=== PATIENT | male | born 1955 | race Caucasian/White ===

== ENCOUNTER → 2017-01-29 | Day surgery (SDC) | payer BC ==
[~2017-01-29] MED LIST: Propofol 200 MG/20 ML SDV IV ONE; Sodium Chloride 0.9% 500 ML IV SCH
[2017-01-29 14:41] VITALS: BP 133/55
--- NOTE | 2017-01-29 15:13 | OR ---
DATE OF OPERATION: 01/29/2017 PREOPERATIVE DIAGNOSIS: PERSISTENT VOMITING. POSTOPERATIVE DIAGNOSIS: PERSISTENT VOMITING. SURGEON: Christiano Donato MD PROCEDURE: EGD. ANESTHESIA: DENTAL LABORATORY ASSISTANT due to chronic alcohol abuse and marked anxiety. COMPLICATIONS: None. SPECIMEN: None. FINDINGS: 1. Full-length EGD. 2. Diffuse gastritis and duodenitis. RECOMMENDATIONS: Appropriate medical care and counseling for alcohol cessation course. The patient did not have biopsies done that day, he did not stop or hold his aspirin and Plavix. INDICATIONS: The patient has been having persistent issues with vomiting and poor appetite. He does have evidence of marked steatosis on CT scan, and is a long-time chronic alcoholic. We elected to rule out any other pathology in the stomach. DESCRIPTION OF PROCEDURE: The patient was prepped and draped, placed in left lateral decubitus position. A lubricated Olympus gastroscope was inserted and intubated in the esophagus. Esophageal lining for the most part benign. There was a small hiatal hernia present without any stricturing, ulceration, or Palacio's changes. The Z-line was crisp around 37.5 cm. The scope advanced into the stomach through the pylorus into the second portion of the duodenum. The 2nd portion of the duodenum and the bulb each had some mild inflammation, no ulcerations or mass. Scope was brought back into the stomach with and without retroflexion to have a good look at the entire stomach lining. No masses or polyps could be seen and there is diffuse and chronic appearing gastritis throughout but no kaleb ulcerations, masses or otherwise. Air was then suctioned, scope removed without complication. LOIS/DEMARCO /[id number]
== END ==
LOC: CC.SDS 13:23
PROVIDERS: ATTEND Family Medicine
DX: K29.50 Unspecified chronic gastritis without bleeding (principal); K29.80 Duodenitis without bleeding; J44.9 Chronic obstructive pulmonary disease, unspecified; F41.9 Anxiety disorder, unspecified; F10.20 Alcohol dependence, uncomplicated; Z79.82 Long term (current) use of aspirin; Z79.899 Other long term (current) drug therapy; F17.210 Nicotine dependence, cigarettes, uncomplicated
CPT/HCPCS: 43235; J2704; J7040

== ENCOUNTER 2017-04-14 13:00 | Emergency (ER) | payer BC ==
[~2017-04-14 13:00] MED LIST changes: +Albuterol/Ipratropium 3.0-0.5 MG/3 ML Neb Soln ONE; -Propofol 200 MG/20 ML SDV IV ONE; -Sodium Chloride 0.9% 500 ML IV SCH
[2017-04-14] MEDS ORDERED: Furosemide 40 MG/4 ML VIAL ONE (13:08)
[2017-04-14] MEDS ORDERED: Albuterol 0.083% 2.5 MG/3 ML Neb Soln ONE (13:11)
[2017-04-14] MEDS ORDERED: Albuterol/Ipratropium 3.0-0.5 MG/3 ML Neb Soln NEB ONE (13:12)
[2017-04-14] MEDS ORDERED: Albuterol 0.083% 2.5 MG/3 ML Neb Soln NEB ONE (13:20)
[2017-04-14] MEDS ORDERED: Nitroglycerin/D5W 25 MG/250 ML BOTTLE ONE (13:23)
[2017-04-14 13:26] LABS: O2 DELIVERY DEVICE NON REBR MASK
[2017-04-14] MEDS ORDERED: Furosemide 40 MG/4 ML VIAL IVPUSH ONE (13:27)
[2017-04-14 13:32] LABS: BICARBONATE,ARTERIAL 20.3 mm/L (22.0-26.0); O2 SATURATION ARTERIAL 65 % (95-98); PCO2 ARTERIAL 59 mm/Hg0 (35-45); PO2 ARTERIAL 44 mm/Hg (80-100)
[2017-04-14] MEDS ORDERED: Sodium Chloride 0.9% 250 ML ONE (13:34)
[2017-04-14] MEDS: Nitroglycerin 0.4 MG Tab.SL SL PRN ×2 (13:35→13:42)
[2017-04-14 13:48] LABS: CHLORIDE,CL 97 mEq/L (98-106); SODIUM,NA 134 mEq/L (136-145)
[2017-04-14] MEDS ORDERED: Etomidate 2 MG/ML 10 ML SDV IVPUSH ONE (13:57)
[2017-04-14] MEDS ORDERED: Succinylcholine/Normal Saline 200 MG/10 ML Syringe IVPUSH ONE (13:58)
[2017-04-14] MEDS ORDERED: Sodium Chloride 0.9% 1,000 ML ONE ×2 (13:59→14:13)
[2017-04-14] MEDS ORDERED: Sodium Chloride 0.9% 1,000 ML IV SCH (14:00)
[2017-04-14] MEDS ORDERED: Rocuronium 10 MG/ML 10 ML Syringe IVPUSH ONE (14:03)
[2017-04-14] MEDS ORDERED: fentaNYL 100 MCG/2 ML SDV ONE (14:10)
[2017-04-14] MEDS ORDERED: Midazolam 1 MG/ML 2 ML SDV IVPUSH ONE (14:17)
[2017-04-14] MEDS ORDERED: fentaNYL 100 MCG/2 ML SDV IVPUSH ONE (14:20)
[2017-04-14 15:35] VITALS: BP 125/68
--- NOTE | 2017-04-14 17:20 | EDM.PDOC ---
ED HPI GENERAL MEDICAL PROBLEM - General Chief Complaint: Respiratory Problem Stated Complaint: Respiratory Distress Time Seen by Provider: 04/14/17 13:07 Source of Information: Reports: Patient, EMS History Limitations: Reports: Respiratory Distress - History of Present Illness INITIAL COMMENTS - FREE TEXT/NARRATIVE: see Dictated notes Onset: Sudden - Related Data Allergies Allergy/AdvReac Type Severity Reaction Status Date / Time No Known Allergies Allergy Verified 04/14/17 15:06 Home Meds: Home Meds Acetaminophen [Tylenol Extra Strength] 1,000 mg PO BID 04/11/15 [History] Aspirin [Low Dose Aspirin EC] 81 mg PO DAILY 04/11/15 [History] Cholecalciferol (Vitamin D3) [Vitamin D3] 2,000 unit PO DAILY 04/11/15 [History] Lisinopril 40 mg PO DAILY 04/11/15 [History] Metoprolol Tartrate 12.5 mg PO BID 04/11/15 [History] Pravastatin Sodium 20 mg PO DAILY 04/11/15 [History] Albuterol/Ipratropium [Combivent Respimat] 2 puff INH Q4H PRN 04/14/17 [History] Clopidogrel [Plavix] 75 mg PO DAILY 04/14/17 [History] Ferrous Sulfate [Slow Release Iron] 365 mg PO DAILY 04/14/17 [History] Furosemide [Furosemide] 20 mg PO DAILY 04/14/17 [History] Hydrocodone/Acetaminophen [Hydrocodon-Acetaminophen 5-325] 1 tab PO Q4H PRN [History] Pantoprazole Sodium 40 mg PO DAILY 04/14/17 [History] Past Medical History Cardiovascular History: Reports: High Cholesterol, Hypertension, Stents Respiratory History: Reports: COPD Gastrointestinal History: Reports: GERD Psychiatric History: Reports: ADD, Other (See Below) Other Psychiatric History: chronic alcoholism - Past Surgical History Cardiovascular Surgical History: Reports: Other (See Below) Other Cardiovascular Surgeries/Procedures: femo-pop bypass Social & Family History - Tobacco Use Smoking Status *Q: Former Smoker Used Tobacco, but Quit: Yes Month Tobacco Last Used: unknown - Recreational Drug Use Recreational Drug Use: No ED ROS GENERAL - Review of Systems Review Of Systems: See Below Constitutional: Denies: Fever Respiratory: Reports: Shortness of Breath, Wheezing Cardiovascular: Reports: Edema. Denies: Chest Pain Neurological: Denies: Confusion ED EXAM, GENERAL - Physical Exam Exam: See Below Free Text/Narrative:: see dictated note Exam Limited By: Respiratory Distress General Appearance: Alert, Severe Distress Course - Vital Signs Last Recorded V/S: Last Vital Signs Temp 97.1 F 04/14/17 13:01 Pulse 135 H 04/14/17 13:01 Resp 36 H 04/14/17 13:01 BP 125/68 04/14/17 13:42 Pulse Ox 60 L 04/14/17 13:01 - Orders/Labs/Meds Orders: Active Orders 24 hr Category Date Time Status RT Aerosol Therapy [RC] ASDIRECTED Care 04/14/17 15:26 Active RT Aerosol Therapy [RC] ASDIRECTED Care 04/14/17 15:27 Active Labs: Laboratory Tests 04/14/17 04/14/17 04/14/17 Range/Units 13:24 13:24 13:24 WBC 5.4 (5.0-10.0) 10^3/uL RBC 4.36 L (4.50-6.00) 10^6/uL Hgb 13.9 L (14.0-18.0) g/dL Hct 43.1 (40.0-54.0) % MCV 98.9 H (82.0-94.0) fL MCH 31.9 (27.0-32.0) pg MCHC 32.3 L (33.0-38.0) g/dL RDW Coeff of Werner 17.9 H (11.0-15.0) % Plt Count 235 (150-400) 10^3/uL Neut % (Auto) 77.1 (35-85) % Lymph % (Auto) 16.1 (10-55) % [place] % (Auto) 4.4 (0-16) % Eos % (Auto) 0.6 (0-5) % Baso % (Auto) 1.8 (0-3) % Neut # (Auto) 4.18 (1.80-7.00) 10^3/uL Lymph # (Auto) 0.87 L (1.00-4.80) 10^3/uL [place] # (Auto) 0.24 (0.00-0.80) 10^3/uL Eos # (Auto) 0.03 (0.00-0.45) 10^3/uL Baso # (Auto) 0.10 10^3/uL D-Dimer, Quantitative (0.00-0.50) ABG pH 7.15 L (7.35-7.45) ABG pCO2 59 H (35-45) mm/Hg0 ABG pO2 44 L (80-100) mm/Hg ABG HCO3 20.3 L (22.0-26.0) mm/L ABG O2 Saturation 65 L (95-98) % ABG Base Excess -9.0 L (-2.0-3.0) O2 Delivery Device Non rebr mask Sodium 134 L (136-145) mEq/L Potassium 3.7 D (3.5-5.0) mEq/L Chloride 97 L (98-106) mEq/L Carbon Dioxide 20 L (21-32) mmol/L BUN 6 L (7-18) mg/dL Creatinine 1.0 (0.7-1.3) mg/dL Est Cr Clr Drug Dosing TNP Estimated GFR (MDRD) > 60 (>=60) mL/min Glucose 196 H D (75-99) mg/dL Calcium 8.3 L (8.4-10.1) mg/dL Total Bilirubin 0.6 (0.0-1.0) mg/dL AST 58 H (15-37) U/L ALT 22 (12-78) U/L Alkaline Phosphatase 86 (46-116) U/L Troponin I 0.090 H (0.00-0.06) ng/mL C-Reactive Protein 0.8 (0.2-0.8) mg/dL NT-Pro-B Natriuret Pep 48359 H (0-1000) pg/mL Total Protein 7.1 (6.4-8.2) g/dL Albumin 2.9 L (3.4-5.0) g/dL 04/14/17 Range/Units 13:24 WBC (5.0-10.0) 10^3/uL RBC (4.50-6.00) 10^6/uL Hgb (14.0-18.0) g/dL Hct (40.0-54.0) % MCV (82.0-94.0) fL MCH (27.0-32.0) pg MCHC (33.0-38.0) g/dL RDW Coeff of Werner (11.0-15.0) % Plt Count (150-400) 10^3/uL Neut % (Auto) (35-85) % Lymph % (Auto) (10-55) % [place] % (Auto) (0-16) % Eos % (Auto) (0-5) % Baso % (Auto) (0-3) % Neut # (Auto) (1.80-7.00) 10^3/uL Lymph # (Auto) (1.00-4.80) 10^3/uL [place] # (Auto) (0.00-0.80) 10^3/uL Eos # (Auto) (0.00-0.45) 10^3/uL Baso # (Auto) 10^3/uL D-Dimer, Quantitative 16.72 H (0.00-0.50) ABG pH (7.35-7.45) ABG pCO2 (35-45) mm/Hg0 ABG pO2 (80-100) mm/Hg ABG HCO3 (22.0-26.0) mm/L ABG O2 Saturation (95-98) % ABG Base Excess (-2.0-3.0) O2 Delivery Device Sodium (136-145) mEq/L Potassium (3.5-5.0) mEq/L Chloride (98-106) mEq/L Carbon Dioxide (21-32) mmol/L BUN (7-18) mg/dL Creatinine (0.7-1.3) mg/dL Est Cr Clr Drug Dosing Estimated GFR (MDRD) (>=60) mL/min Glucose (75-99) mg/dL Calcium (8.4-10.1) mg/dL Total Bilirubin (0.0-1.0) mg/dL AST (15-37) U/L ALT (12-78) U/L Alkaline Phosphatase (46-116) U/L Troponin I (0.00-0.06) ng/mL C-Reactive Protein (0.2-0.8) mg/dL NT-Pro-B Natriuret Pep (0-1000) pg/mL Total Protein (6.4-8.2) g/dL Albumin (3.4-5.0) g/dL Meds: Medications Discontinued Medications Generic Name Dose Route Start Last Admin Trade Name Freq PRN Reason Stop Dose Admin Albuterol Confirm 04/14/17 13:11 04/14/17 15:32 Proventil Neb Soln Administered 04/14/17 13:12 Not Given Dose 2.5 mg .ROUTE .STK-MED ONE Albuterol 2.5 mg 04/14/17 13:20 04/14/17 13:20 Proventil Neb Soln NEB 04/14/17 13:21 2.5 mg ONETIME ONE Administration Albuterol/Ipratropium Confirm 04/14/17 13:00 04/14/17 15:29 Duoneb 3.0-0.5 Mg/3 Ml Administered 04/14/17 13:01 Not Given Dose 3 ml .ROUTE .STK-MED ONE Albuterol/Ipratropium 3 ml 04/14/17 13:12 04/14/17 13:12 Duoneb 3.0-0.5 Mg/3 Ml NEB 04/14/17 13:13 3 ml ONETIME ONE Administration Etomidate 15 mg 04/14/17 13:57 04/14/17 13:57 Amidate IVPUSH 04/14/17 13:58 15 mg ONETIME ONE Administration Fentanyl Confirm 04/14/17 14:10 04/14/17 15:37 Sublimaze Administered 04/14/17 14:11 Not Given Dose 100 mcg .ROUTE .STK-MED ONE Fentanyl 100 mcg 04/14/17 14:20 04/14/17 14:20 Sublimaze IVPUSH 04/14/17 14:21 100 mcg ONETIME ONE Administration Furosemide Confirm 04/14/17 13:08 04/14/17 15:30 Lasix Administered 04/14/17 13:09 Not Given Dose 40 mg .ROUTE .STK-MED ONE Furosemide 40 mg 04/14/17 13:27 04/14/17 13:27 Lasix IVPUSH 04/14/17 13:28 40 mg ONETIME ONE Administration Nitroglycerin/Dextrose Confirm 04/14/17 13:23 04/14/17 15:23 Nitroglycerin 25 Mg/D5w 250 Ml Administered 04/14/17 13:24 Not Given Dose 25 mg in 250 mls @ as directed .ROUTE .STK-MED ONE Sodium Chloride Confirm 04/14/17 13:34 04/14/17 15:32 Normal Saline Administered 04/14/17 13:35 Not Given Dose 250 mls @ as directed .ROUTE .STK-MED ONE Sodium Chloride Confirm 04/14/17 13:59 04/14/17 15:43 Normal Saline Administered 04/14/17 14:00 Not Given Dose 1,000 mls @ as directed .ROUTE .STK-MED ONE Sodium Chloride Confirm 04/14/17 14:13 04/14/17 15:38 Normal Saline Administered 04/14/17 14:14 Not Given Dose 1,000 mls @ as directed .ROUTE .STK-MED ONE Sodium Chloride 1,000 mls @ 999 mls/hr 04/14/17 14:00 04/14/17 14:00 Normal Saline IV 999 mls/hr ASDIRECTED SARAVANAN Administration Midazolam HCl 4 mg 04/14/17 14:17 04/14/17 14:17 Versed 1 Mg/Ml IVPUSH 04/14/17 14:18 4 mg ONETIME ONE Administration Nitroglycerin 0.4 mg 04/14/17 13:35 04/14/17 13:42 Nitrostat SL 0.4 mg Q5M PRN Administration Chest Pain Rocuronium [place] 20 mg 04/14/17 14:03 04/14/17 14:03 Zemuron IVPUSH 04/14/17 14:04 20 mg ONETIME ONE Administration Succinylcholine Chloride 10 mg 04/14/17 13:58 04/14/17 13:58 Succinylcholine In Ns Pf IVPUSH 04/14/17 13:59 10 mg ONETIME ONE Administration Departure - Departure Time of Disposition: 14:45 Disposition: DC/Tfer to Acute Hospital 02 Condition: Critical Clinical Impression: Hypoxemia, Respiratory distress, acute - Discharge Information Referrals: Crystal Tellez PA-C [Emergency Provider] - Forms: ED Department Discharge Additional Instructions: life flighted to [facility] with Dr. Michael szymanski . - Problem List & Annotations (1) Hypoxemia SNOMED Code(s): 787246557 Code(s): R09.02 - HYPOXEMIA Status: Acute Priority: High (2) Respiratory distress, acute SNOMED Code(s): 168446154 Code(s): R06.03 - ACUTE RESPIRATORY DISTRESS Status: Acute Priority: High - Problem List Review Problem List Initiated/Reviewed/Updated: Yes - My Orders Last 24 Hours: My Active Orders 04/14/17 15:26 RT Aerosol Therapy [RC] ASDIRECTED 04/14/17 15:27 RT Aerosol Therapy [RC] ASDIRECTED - Assessment/Plan Last 24 Hours: My Active Orders 04/14/17 15:26 RT Aerosol Therapy [RC] ASDIRECTED 04/14/17 15:27 RT Aerosol Therapy [RC] ASDIRECTED Plan: Total ER critical care time was 2 hours spent with the pt continuously.
--- NOTE | 2017-04-15 08:16 | ER ---
HISTORY OF PRESENT ILLNESS: He presents to the ER in respiratory distress per the [facility]. Reports that his brother talked to him at approximately 11 a.m. this morning and he was fine. He was breathing fine. Shortly thereafter, he states he started having shortness of breath and progressively became worse. So, he did call 911, and he arrived in our ER at approximately 1300 in severe respiratory distress. O2 saturations on 15 L were in the 60s. He was very ashen. He was sitting upright. He was diaphoretic and stating that he needs help, he cannot breathe. PAST MEDICAL HISTORY: Past history on him, 1. He was recently discharged from [facility] for a gastrointestinal bleed on 04/05/2017. He had severe peripheral vascular disease and had been on Plavix and aspirin, and had been started on Eliquis. Shortly before that, when he was in the ER in the hospital there, they did stop his Eliquis, and he has not had any further bleeding. 2. He does have severe peripheral vascular disease, and was recently at [facility] for a consult regarding them re-doing an occluded right femoral-popliteal. He has not had any respiratory distress associated with any of those. REVIEW OF SYSTEMS: Please see the ER note for past medical history and review of systems. EMERGENCY ROOM COURSE: On assessment, once he arrived here, he was in severe respiratory distress. He had wheezing and rales throughout. He denied having any chest pain prior to this. He denies having any fever or chills. He states it just basically suddenly came on with shortness of breath, and has progressively gotten worse. I did initially give him a DuoNeb treatment, followed by an albuterol treatment, neither of which improved his O2 saturations, as they continued to stay in the low 60s. We did contact [facility] for their assistance at this time. They did recommend we put him on BiPAP, which we do not have available here, so we did have CPAP which our EMS crew applied. He had much difficulty tolerating that, but his saturations did go up into the 70s. He had less wheezing at this time, but he continued to have rales throughout. [facility] did recommend that we give him nitroglycerin, and two sublingual nitroglycerins were given, but at that point, his blood pressure did drop into the 90s and we were not able to give him any further nitroglycerin. [facility] at this point had been called. He did rapidly decline his blood pressures. Please see the nurse's notes for all of those along with the rest of his vitals. His heart rate during most of it was in the 130s to 140s, and his saturations continued to remain low. Per [facility] recommendation, we did intubate him. He was able to be intubated easily by Ricardo Tellez with a #7 tube, and placement was checked both by auscultation and by a chest x-ray for placement. Lab work was discussed with [facility]. At this time, Dr. Donato was also present just prior to him being intubated. There was a Godinez catheter also placed at this time. Once he was intubated and placement was checked, his O2 saturations did come up into the high 80s; the highest we did see was like 87 to 88. We did want to start an IV nitroglycerin drip, but his blood pressure would not tolerate it. As soon as we would start it, he would drop down into the 90s. After intubation, his lungs had less wheezing, but he did continue to have rales throughout. He does not have any palpable pulses, but I believe that is normal for him with his femoral-popliteal bypasses. He does have some open sores on his toe and foot on both feet. He does have a trace of edema, and this was all related to Dr. Rodriguez, who was the accepting ER physician in [facility] in [place]. Prior to transfer, because of his abdominal distention that had occurred with his rapid breathing, we did place an NG tube with minimal return. After he was intubated, he was bag valve masked the entire time. [facility] did arrive and did do their assessment, and he was then transferred by helicopter to [facility] in [place] per [facility]. Please see along with the note in the chart, also the note from [facility]. ASSESSMENT: RESPIRATORY ARREST, UNKNOWN CAUSE AT THIS TIME. MH/MODL /[id number]
--- NOTE | 2017-04-15 10:12 | PCM.SN ---
- Free Text/Narrative Note: Date of service: 04/14/2017 Brother initially called to receive consent for intubation. Updated on patients status and need for intubation. He provided consent for intubation. Patient was also able to consent to intubation to primary provider Crystal BRIONES. Called patient's brother again to update on patient's status and discuss risks and benefits of transfer. Risks of transfer include worsening of condition, helicopter crash, or enroute. Benefits of transfer include higher levels of care and capability of ventilation. Risks of nontransfer include worsening of condition, , no ventilator support and nonspecialized care. Benefits of nontransfer include familiar environment and staying close to home. Patient's brother consents to helicopter transfer to [facility].
== END 2017-04-14 14:55 ==
LOC: CC.ED 13:00
DX: R09.2 Respiratory arrest (principal); R09.02 Hypoxemia; Z79.82 Long term (current) use of aspirin; Z79.899 Other long term (current) drug therapy; I10 Essential (primary) hypertension; E78.00 Pure hypercholesterolemia, unspecified; J44.9 Chronic obstructive pulmonary disease, unspecified; Z87.891 Personal history of nicotine dependence
CPT/HCPCS: 31500; 36415; 36600; 51702; 71045; 80053; 82803; 83880; 84484; 85025; 85379; 86140; 93005; 94640; 96361; 96374; 96375; 99291; 99292; A9270; J0330; J1940; J2250; J3010; J7030; J7620; 51701; 99285